=== PATIENT | female | born 1980 | race Caucasian/White ===

== ENCOUNTER 2017-03-07 04:51 | Inpatient (IN) | payer OTHER ==
[2017-03-07] MEDS ORDERED: Lactated Ringer's 1,000 ML IV SCH (05:06)
[2017-03-07 05:07] VITALS: BMI 43.2
[2017-03-07] MEDS ORDERED: cefOXitin Sodium 1 GM in Sodium Chloride 0.9% 100 ML IVPB ONE (05:25)
[2017-03-07] MEDS: Lactated Ringer's 1,000 ML IV SCH ×2 (05:50→06:49)
[2017-03-07 06:23] LABS: BASO % 0.2 % (0.0-2.0); EOS # 0.3 K/uL (0.0-0.7); EOS % 2.9 % (0.0-4.0); HEMATOCRIT 37.9 % (34.0-47.0); LYMPH # 1.3 K/uL (1.0-4.3); LYMPH % 12.3 % (20.0-40.0); MEAN CELL VOLUME 86.8 fl (81.0-99.0); MEAN CORPUSCULAR HEMOGLOBIN 28.4 pg (27.0-31.0); MEAN CORPUSCULAR HGB CONC 32.8 g/dL (33.0-37.0); MEAN PLATELET VOLUME 8.6 fl (7.2-11.7); MONO % 9.4 % (0.0-10.0); NEUT # 7.8 K/uL (1.8-7.0); NEUT % 75.2 % (50.0-75.0); NRBC % 0.1 % (0.0-0.0); RED CELL DISTRIBUTION WIDTH 14.7 % (11.5-14.5); WHITE BLOOD COUNT 10.4 K/uL (4.8-10.8)
[2017-03-07 06:32] LABS: ALB/GLOB RATIO 1.1 (1.0-2.1); ALKALINE PHOSPHATASE 113 U/L (38-126); ALT/SGPT 36 U/L (9-52); AST/SGOT 27 U/L (14-36); BILIRUBIN,TOTAL 0.2 mg/dl (0.2-1.3); BLOOD UREA NITROGEN 12 mg/dl (7-17); CALCIUM 8.9 mg/dL (8.4-10.2); CARBON DIOXIDE 22 mmol/L (22-30); CHLORIDE 105 mmol/L (98-107); GFR AFRICAN-AMERICAN > 60; GLUCOSE,RANDOM 88 mg/dL (65-105); SODIUM 136 mmol/l (132-148); URIC ACID 4.3 mg/Dl (2.2-7.5)
[2017-03-07 06:56] LABS: PARTIAL THROMBOPLASTIN TIME 30.7 Seconds (25.6-37.1)
--- NOTE | 2017-03-07 07:21 | OBADHP ---
Datetime: 03/07/2017 07:13 IP Chief Complaint Other: macrosomia by sono IP Adm Impression Other: early labor maternal request for abdominal delivery Admit Comment, IP Provider: mild elevated bp and macrosomia by sonos and now in early labor and mate rnal request for abdominal delivery Informed consent obtained Extremities - PN: Abnormal Abdomen - PN: Abnormal Breast - PN: Normal Lungs - PN: Normal Heart - PN: Normal Thyroid - PN: Normal Neurologic - PN: Normal HEENT - PN: Normal General - PN: Normal Presentation-Admit: cephalic FHR - Baseline A Provider: 150's Membranes, Provider: Intact Comments, ACOG Physical Exam: Abd gravid at 44 cm above sp, FCA + Ext mild edema but DTR 2+ sym Gestation - Est Wks by US: 39+ IP Hx Assessment: The History has been Reviewed and is Current IP Chief Complaint: Uterine contractions; Maternal discomfort; Other NICHD Variability Prov Fetus A: Moderate 6-25bpm NICHD Accel Fetus A IP Provider: 10X10 NICHD Decel Fetus A IP Provider: None Dilatation, Provider: Ft to 1cm Effacement, Provider: soft Genitourinary Exam: Normal DTRs - PN: Normal EGA AdmitDate IP: 39.3 IP Adm Impression: Term, intrauterine IP Admit Plan: Admit to unit; Initiate labor protocol
[2017-03-07 07:27] VITALS: RESP 18; TEMP 98.3; O2SAT 100
--- NOTE | 2017-03-07 09:19 | OBDS ---
DELIVERY PERSONNEL Delivery Doctor: Phi Schwartz MD Business Architect: Gabriela Delgadillo RN Anesthesiologist: Phi Ogden MD MATERNAL INFORMATION Delivery Anesthesia: Spinal Medications in Delivery: Pitocin 30 units Estimated Blood Loss (ml): 800 Placenta Cultured: No Maternal Complications: Other Other Maternal Complications: suspected macrosomia by sono/elevated BP Provider Comments: see dictated surgeons note LABOR SUMMARY EDC: 03/11/2017 00:00 No. Babies in Womb: 1 Attempted: No Labor Anesthesia: Spinal LABOR INFORMATION Reason for Induction: Not Applicable Reason for Induction Other: n/a Oxytocin: N/A Group B Beta Strep: Negative Steroids Given: None Reason Steroids Not Administered: Not Applicable MEMBRANES Membranes Rupture Method: Artificial Rupture of Membranes: 03/07/2017 08:22 Length of Rupture (hrs): 0.03 Amniotic Fluid Color: Clear Amniotic Fluid Amount: Moderate Amniotic Fluid Odor: Normal STAGES OF LABOR Stage 3 hrs: 0 Stage 3 min: 0 VAGINAL DELIVERY Episiotomy: None Laceration Extension: N/A Laceration Type: None Laceration Repair: Not Applicable Sponge Count Correct: Yes Sharps Count Correct: Yes Count Comment: count correct x3 CSECTION DELIVERY Primary Indication: Other Other Primary Indication: primary elective macrosomia CSection Urgency: Elective CSection Incidence: Primary Labor: No Labor Elective: Elective CSection Incision: Lower Uterine Transverse Uterine Closure: Double-layer closure BABY A INFORMATION Infant Delivery Date/Time: 03/07/2017 08:24 Method of Delivery: Born in Route : No : N/A Forceps: N/A Vacuum Extraction: Successful Shoulder Dystocia : No SHOULDER DYSTOCIA BABY A Delivery Date/Time: 03/07/2017 08:24 PRESENTATION/POSITION BABY A Presentation: Cephalic Cephalic Presentation: Vertex Breech Presentation: N/A PLACENTA INFORMATION BABY A Placenta Delivery Time : 03/07/2017 08:24 Placenta Method of Delivery: Manual Removal Placenta Status: Delivered SCORES BABY A Heart Rate 1 min: >100 bpm Resp Effort 1 min: Good Cry Reflex Irritability 1 min: Cough or Sneeze or Pulls Away Muscle Tone 1 min: Active Motion Color 1 min: Body Scanlon, Extremities Blue Resuscitation Effort 1 min: Tactile Stimulation SCORE 1 MIN: 9 Heart Rate 5 min: >100 bpm Resp Effort 5 min: Good Cry Reflex Irritability 5 min: Cough or Sneeze or Pulls Away Muscle Tone 5 min: Active Motion Color 5 min: Body Scanlon, Extremities Blue Resuscitation Effort 5 min: Tactile Stimulation SCORE 5 MIN: 9 INFORMATION BABY A Gestational Age at Delivery: 39.3 Gestational Status: Term Infant Outcome : Liveborn Infant Condition : Stable Infant Sex: Female IDENTIFICATION/MEDS BABY A ID Band Number: [id number] ID Band Location: Left Leg; Left Arm WEIGHT/LENGTH BABY A Birthweight (gms): 3580 Weight (lb): 7 Infant Weight (oz): 14 CORD INFORMATION BABY A No. Cord Vessels: 3 Nuchal Cord : Around Neck x2, Loose Cord Blood Taken: Yes Suction: None ASSESSMENT BABY A Complications: None Physical Findings at Delivery: Within Normal Limits Infant Respirations: Appears Normal Grain Elevator Agent/ALS Called : No Infant Care By: Edel Coronado RN Transferred To: [facility]
[2017-03-07] MEDS ORDERED: Oxycodone/Acetaminophen 5/325 mg Tab PO PRN ×2 (09:22→12:50)
[2017-03-07] MEDS ORDERED: cefOXitin Sodium 1 GM in Sodium Chloride 0.9% 100 ML IVPB SCH (09:30)
[2017-03-07] MEDS ORDERED: Oxytocin 30 units/LR 500ML 30 U/500 ML BAG IV SCH (09:30)
[2017-03-07 09:57] LABS: RBC URINE 2 /hpf (0-3); URINE BACTERIA RARE (<OCC); URINE BILIRUBIN NEGATIVE (NEGATIVE); URINE BLOOD NEGATIVE (NEGATIVE); URINE COLOR YELLOW (YELLOW); URINE GLUCOSE (UA) NEG (Normal); URINE KETONE NEGATIVE (NEGATIVE); URINE LEUKOCYTE ESTERASE MOD Leu/uL (Negative); URINE PROTEIN NEGATIVE (NEGATIVE); URINE URIC ACID CRYSTALS OCC /hpf (<OCC); URINE UROBILINOGEN 0.2-1.0 mg/dL (0.2-1.0); WBC URINE 2 /hpf (0-5)
[2017-03-07] MEDS ORDERED: DiphenhydrAMINE 50 mg/ml Inj IVP PRN (13:49)
[2017-03-07] MEDS: cefOXitin Sodium 1 GM in Sodium Chloride 0.9% 100 ML IVPB SCH (17:35)
[2017-03-07] MEDS ORDERED: Magnesium Sulfate 4 gm/100 ml 4 GM/100 ML BAG IVPB ONE (20:01)
[2017-03-07] MEDS ORDERED: Magnesium Sul 40GM/1L SW 40 GM/1,000 ML ML IV ONE (20:04)
--- NOTE | 2017-03-07 21:27 | OBPPN ---
Datetime: 03/07/2017 21:17 PP Pain Prov: Within normal limits PP Pain Prov comment: episode of chills and headache PP Nausea Prov: Denies PP Flatus Prov: No PP Nausea Prov comment: Denies sob chest pains PP Flatus Prov comment: denies blurry vision PP Breasts Prov: Normal PP Lungs Prov: Normal PP Abdomen/Uterus Prov: Abnormal PP Lochia Prov: Normal PP Vulva/Perineum Prov: Normal PP CVA Tenderness Prov: Normal PP Extremities Prov: Abnormal PP C/S Incision Prov: Normal PP Progress Prov: Not Applicable PP Comments Phys Exam Prov: Lungs clear no wheezing no rales, abd soft not distended dressing intact no sign of active bleeding Lockia mod. Ext bilateral edema but reflexes slightly brisk but no hyper refexia, no calf tenderness Padgett in place clear yellowish fluids PP Impression Other Prov: increase BP episodes and headaches PP Plan Other Prov: transfer to L/D for MgSO4 PP Progress Note Prov: possible pre-eclampsia will start on Magnesium profilaxis repeat liver enzyme s and CBC Pt and partner informed of situation and understands and agreed Vital Signs Provider PP: Reviewed
--- NOTE | 2017-03-07 22:54 | OP ---
PROCEDURE DATE: 03/07/2017 PREOPERATIVE DIAGNOSES: 1. at term. 2. Early labor and maternal discomfort. 3. Microsomia by previous sonograms. 4. Maternal request for elective . 5. Elevated blood pressures. POSTOPERATIVE DIAGNOSES: 1. at term. 2. Early labor, maternal discomfort. 3. Maternal request for section. 4. Elevated blood pressures. 5. Nuchal cord x 2, tight. PROCEDURE PERFORMED: Primary low transverse segment section. SURGEON: Dr. Schwartz. MECHANICAL ADJUSTER: Dr. Hamlin who was there for the entire duration of the case. Supervisor Last Model Department needed in pos itioning the patient, opening up the abdomen, delivery of the baby and closure of the abdomen. ANESTHESIA USED: Spinal by Dr. Ogden. ESTIMATED BLOOD LOSS: 800 mL. DRAINS USED: None. REPLACEMENTS USED: None. FINDINGS: 1. Delivered a living baby girl. Baby appears term. Baby cries spontaneously. Pediatrics in atten dance. score of 9 and 9. Nuchal cord x 2, tight. 2. Amniotic fluid clear. 3. Placenta complete and intact. 4. Both tubes and ovaries appear grossly within normal limits to inspection bilaterally. DESCRIPTION OF PROCEDURE: The patient was taken to the operating room and placed on the operating ta ble in a supine position. Following induction of spinal anesthesia, the patient was then replaced in a supine position. A Padgett catheter was inserted into the bladder. Venodyne boots were applied to both legs. Clear fluid noted to be present in the Padgett bag at this time. At this time, we then pro ceeded to drape and prep the abdomen in the usual sterile manner. Anesthesia tested and found to be well secure. A Pfannenstiel incision was then made using sharp dissection 2 fingerbreadths above the symphysis pubis. The incision was then extended down to subcutaneous tissue also using sharp dissec tion. At this time, we then proceeded to obtain hemostasis by means of electrocoagulation. The fasc ia was then identified, was then entered at the midline. Incision in the fascia was then extended la terally in each direction using sharp dissection. At this time, the rectus muscle was then slit at t he midline exposing the peritoneum. Peritoneal layer was then picked up using 2 Brigette clamps, retrac jono superiorly and then entered using sharp dissection. Following this, we then proceeded to extend the incision in the peritoneum superiorly and inferiorly under direct visualization. The bladder was identified, was then retracted inferiorly using the Rina retractor. At this time, we then procee ded to identify the low transverse segment of the uterus. The low transverse segment of the uterus w as then entered at the visceral peritoneum, and using blunt dissection, a bladder flap was then creat ed and retracted inferiorly using the same [place] retractor. An incision was then made in the low t ransverse segment of the uterus. Upon entering the uterine cavity, clear fluid noted to be present. The incision in the uterine area was then extended laterally in each direction using bandage scissor s. Using a manual scooping procedure, a living baby girl was then delivered. The baby appears term, slightly large for gestational age. Baby cries spontaneously. There were 2 loops of cord around th e neck, which appears to be a slightly tight, undone prior to full delivery. At this time, the umbil icus was then doubly clamped, cut and the baby handed to the pediatric personnel who was standing by. Samples of cord blood were then obtained and the placenta was then delivered complete and intact. The uterus was then exteriorized to provide better visualization. The uterine cavity was then thorou ghly cleaned using moist lap pad. The uterus was massaged and contracted well. Uterine incision was then secured using multiple T clamps and the uterine incision was then approximated using 0 Vicryl s uture in a continuous interlocking manner. A second layer was also applied using 0 Vicryl suture in a continuous manner. At this time, hemostasis checked and found to be well secure. The bladder flap was then approximated using a 2-0 Vicryl in a continuous manner. Hemostasis checked and found to be well secure. Both tubes and ovaries appear grossly within normal limits to inspection bilaterally. Free amniotic fluid and blood were then evacuated from the pelvic cavity. The uterus was then allow ed to retract back into its original position. All operative areas checked, hemostatically secure an d the peritoneum was then approximated using 0 Vicryl suture in a continuous manner. Rectus muscle w as also approximated at the midline using several interrupted 0 Vicryl suture. The fascia was then i dentified, was then approximated using 1 Vicryl suture in a continuous manner. Fascia was then check ed and found to be free of defects. Subcutaneous tissue was then irrigated using saline solution and approximated using several interrupted 2-0 plain sutures. The skin was then approximated using a 3- 0 Prolene in a subcuticular fashion. Steri-Strips were then applied. The patient tolerated the proc edure well. There were no complications. She was transferred to the recovery room in satisfactory c ondition. Clear fluid noted to be present in the Padgett bag at this time. Sponge, instrument, and ne edle count were correct x 3. Kareem Schwartz MD cc: 71 TT: 03/07/2017 22:53:45 mn
[2017-03-08] MEDS: cefOXitin Sodium 1 GM in Sodium Chloride 0.9% 100 ML IVPB SCH ×2 (02:20→10:30)
[2017-03-08 06:54] LABS: HEMATOCRIT 34.9 % (34.0-47.0); MEAN CELL VOLUME 86.8 fl (81.0-99.0); MEAN CORPUSCULAR HEMOGLOBIN 28.2 pg (27.0-31.0); MEAN CORPUSCULAR HGB CONC 32.5 g/dL (33.0-37.0); RED CELL DISTRIBUTION WIDTH 15.1 % (11.5-14.5); WHITE BLOOD COUNT 15.3 K/uL (4.8-10.8)
[2017-03-08] MEDS ORDERED: Magnesium Sul 40GM/1L SW 40 GM/1,000 ML ML IV ONE (08:30)
[2017-03-08 09:09] LABS: BILIRUBIN,TOTAL 0.2 mg/dl (0.2-1.3); TOTAL PROTEIN 5.9 G/DL (6.3-8.2)
--- NOTE | 2017-03-08 09:09 | OBPPN ---
Datetime: 03/08/2017 08:58 PP Pain Prov: Within normal limits PP Pain Prov comment: no SOB, chest pains or leg pains Denies C/F PP Nausea Prov: Denies PP Nausea Prov comment: no n/v PP Breasts Prov: Normal PP Lungs Prov: Normal PP Abdomen/Uterus Prov: Abnormal PP Lochia Prov: Normal PP Vulva/Perineum Prov: Normal PP CVA Tenderness Prov: Normal PP Extremities Prov: Abnormal PP C/S Incision Prov: Normal PP Progress Prov: Not Applicable PP Comments Phys Exam Prov: awake alert NAD, lungs clear no wheezing or rales, Abd soft not distende d Bowel sounds present, dressing intact no active bleeding removed and inclision clean and dry no act malia bleed or suppt no sign of infection. Prolene in place. Ext still with mild edema bilaterally bu t no calf tenderness and Venodyne in place DTR 2+ sym. Padgett in place draining yellow fluid with goo d output PP Plan Prov: Continue present management PP Impression Other Prov: mild pre-eclampsia on mag. PP Progress Note Prov: CBC reviewed, pending liver enzymes, MgSO4 decreased, start diet and OOB with help. IP PP Procedures: None
[2017-03-08 09:47] LABS: ALKALINE PHOSPHATASE 92 U/L (38-126); ALT/SGPT 42 U/L (9-52); AST/SGOT 46 U/L (14-36); BILIRUBIN,TOTAL 0.3 mg/dl (0.2-1.3); BLOOD UREA NITROGEN 7 mg/dl (7-17); CALCIUM 7.8 mg/dL (8.4-10.2); CARBON DIOXIDE 25 mmol/L (22-30); CHLORIDE 102 mmol/L (98-107); GFR AFRICAN-AMERICAN > 60; GLUCOSE,RANDOM 132 mg/dL (65-105); POTASSIUM 3.9 MMOL/L (3.6-5.0); SODIUM 132 mmol/l (132-148)
--- NOTE | 2017-03-09 08:46 | OBPPN ---
Datetime: 03/09/2017 08:39 PP Pain Prov: Within normal limits PP Pain Prov comment: No SOB, chest pains or leg pains PP Nausea Prov: Denies PP Flatus Prov: Yes PP BM Prov: No PP Breasts Prov: Normal PP Lungs Prov: Normal PP Abdomen/Uterus Prov: Abnormal PP Lochia Prov: Normal PP Vulva/Perineum Prov: Normal PP CVA Tenderness Prov: Normal PP Extremities Prov: Abnormal PP C/S Incision Prov: Normal PP Progress Prov: Normal PP Comments Phys Exam Prov: awake alert w/o x3 ambulating well without any difficulty, Abd soft not distended depressible fundus firm below the umb. Incision clean and dry no active bleeding sutures i n place, ext no calf tenderness but bilateral edema still present. DTR 2+ sym PP Impression Prov: Normal progression PP Plan Prov: Continue present management PP Impression Other Prov: pre-eclampsia improved PP Progress Note Prov: OOB and ambulation, dulcolax suppt this am Continue po care and PP care IP PP Procedures: None
--- NOTE | 2017-03-10 10:18 | OBPPN ---
Datetime: 03/10/2017 10:11 PP Pain Prov: Within normal limits PP Pain Prov comment: No SOB, chest pains or leg pains PP Nausea Prov: Denies PP Flatus Prov: Yes PP BM Prov: Yes PP Nausea Prov comment: No headaches or visual dist. PP Breasts Prov: Normal PP Heart Prov: Normal PP Lungs Prov: Normal PP Abdomen/Uterus Prov: Abnormal PP Lochia Prov: Normal PP Vulva/Perineum Prov: Normal PP CVA Tenderness Prov: Normal PP Extremities Prov: Abnormal PP C/S Incision Prov: Normal PP Progress Prov: Normal PP Comments Phys Exam Prov: Lungs clear, Abd soft ND, fundus firm at umb. Incision clean and dry n o suppt or discharge jExt bilateral edema DTR 2+ sym PP Plan Prov: Continue present management PP Impression Other Prov: labile BP PP Progress Note Prov: BP creaping up will get a med consult Dr Sue Willingham consulted and will see p t IP PP Procedures: None Vital Signs Provider PP: Reviewed
--- NOTE | 2017-03-10 11:29 | CP.PCM.CON ---
History of Present Illness - History of Present Illness History of Present Illness: THE PATIENT IS A 36 YEAR OLD FEMALE WHO DENIES ANY SIGNIFICANT PAST MEDICAL PROBLEMS AND WAS NOT ON ANY PRESCRIPTION MEDICATIONS FOR ANY MEDICAL PROBLEM. SHE WAS AT 39 WEEKS GESTATION AND HAD A ON 03/07/17. HE BLOOD PRESSURE WAS NORMAL ON VISITS AND ON ADMISSION, BUT IT INCREASED AFTER THE ANS DECREASED WITH MGSO4 BUT IT WAS HIGH AGAIN THIS MORNING AFTER THE MGSO4 WAS STOPPED. CARDIOLOGY WAS THEN CALLED FOR THE HYPERTENSION. SHE DENIES CHEST PAIN, PALPITATIONS OR SOB Past Patient History - Past Social History Smoking Status: Never Smoked Meds Allergies/Adverse Reactions: Allergies Allergy/AdvReac Type Severity Reaction Status Date / Time shellfish derived Allergy ANAPHYLAXIS Verified 03/07/17 05:05 - Medications Medications: Current Medications Diphenhydramine HCl (Benadryl) 50 mg IVP Q6 PRN PRN Reason: Itching / Pruritus Docusate Sodium (Colace) 100 mg PO BID [facility] Last Admin: 03/10/17 08:32 Dose: 100 mg Ibuprofen (Motrin Tab) 600 mg PO Q4H PRN PRN Reason: Pain, Mild (1-3) Last Admin: 03/09/17 19:10 Dose: 600 mg Ketorolac Tromethamine (Toradol) 30 mg IVP Q6 PRN PRN Reason: For PCEA Breakthrough Pain Last Admin: 03/08/17 14:09 Dose: 30 mg Metoclopramide HCl (Reglan) 10 mg IVP Q6H PRN PRN Reason: Nausea/Vomiting Physical Exam - Respiratory Exam Respiratory Exam: Clear to Auscultation Bilateral - Cardiovascular Exam Cardiovascular Exam: REGULAR RHYTHM, +S1, +S2 - Extremities Exam Additional comments: MILD PRE-TIBIAL EDEMA - Additional Findings Additional findings: BP THIS AM WAS 177/97 AND 152/922 Results - Vital Signs Recent Vital Signs: Last Vital Signs Temp 98.3 F 03/07/17 07:23 Pulse 87 03/07/17 07:23 Resp 18 03/07/17 07:23 BP 159/69 H 03/07/17 07:23 Pulse Ox 100 03/07/17 07:23 - Labs Result Diagrams: 03/08/17 06:41 03/08/17 09:17 Assessment & Plan - Assessment and Plan (Free Text) Assessment: INDUCED HYPERTENSION Plan: WILL BEGIN AMLODIPINE 5 MGS DAILY AND OBSERVE BLOOD PRESSURE
--- NOTE | 2017-03-10 17:42 | CARD ---
APPROVED REPORT EKG Measurement Heart [id number] <Conclusion> Normal sinus rhythm Possible Left atrial enlargement Borderline ECG
[2017-03-11 09:13] VITALS: BP 144/83; PULSE 83
--- NOTE | 2017-03-11 11:08 | CP.PCM.PN ---
Subjective - Date & Time of Evaluation Date of Evaluation: 03/11/17 Time of Evaluation: 10:15 - Subjective Subjective: NO COMPLAINTS FEELS WELL Objective - Vital Signs/Intake and Output Vital Signs (last 24 hours): Temp Pulse Resp BP Pulse Ox 98.3 F 83 18 144/83 100 03/07/17 07:23 03/11/17 09:13 03/07/17 07:23 03/11/17 09:13 03/07/17 07:23 - Medications Medications: Current Medications Amlodipine Besylate (Norvasc) 5 mg PO DAILY [facility] Last Admin: 03/11/17 09:13 Dose: 5 mg Diphenhydramine HCl (Benadryl) 50 mg IVP Q6 PRN PRN Reason: Itching / Pruritus Docusate Sodium (Colace) 100 mg PO BID [facility] Last Admin: 03/11/17 09:12 Dose: 100 mg Ibuprofen (Motrin Tab) 600 mg PO Q4H PRN PRN Reason: Pain, Mild (1-3) Last Admin: 03/09/17 19:10 Dose: 600 mg Ketorolac Tromethamine (Toradol) 30 mg IVP Q6 PRN PRN Reason: For PCEA Breakthrough Pain Last Admin: 03/08/17 14:09 Dose: 30 mg Metoclopramide HCl (Reglan) 10 mg IVP Q6H PRN PRN Reason: Nausea/Vomiting - Labs Labs: 03/08/17 06:41 03/08/17 09:17 PT 10.1 Seconds (9.8-13.1) 03/07/17 06:00 INR 0.9 (0.9-1.2) 03/07/17 06:00 APTT 30.7 Seconds (25.6-37.1) 03/07/17 06:00 - Respiratory Exam Respiratory Exam: Clear to Ausculation Bilateral - Cardiovascular Exam Cardiovascular Exam: REGULAR RHYTHM, +S1, +S2 - Extremities Exam Additional comments: MILD LE EDEMA - Additional Findings Additional findings: BP 144/83 EKG NSR Assessment and Plan - Assessment and Plan (Free Text) Assessment: INDUCED HYPERTENSION-CONTROLLED Plan: OK TO DISCHARGE PATIENT TODAY AMLODIPINE 5 MGS PO DAILY OV WITH DR RIVAS AND DR RIVAS IN ABOUT 1 WEEK
== END 2017-03-11 14:10 | disposition home or self-care (01) | DRG 766 ==
LOC: H.EROB2 04:51 → H.L&D 05:16 → H.OB/GYN 12:30 → H.L&D 19:50 → H.OB/GYN 03-08 20:25
PROVIDERS: ADMIT Specialist; ATTEND Specialist
PROC: 10D00Z1 Extraction of Products of Conception, Low, Open Approach (ICD-10-PCS; principal; 2017-03-07)
PROC: 4A1HXCZ Monitoring of Products of Conception, Cardiac Rate, External Approach (ICD-10-PCS; 2017-03-07)
DX: O36.63X0 Maternal care for excessive fetal growth, third trimester, not applicable or unspecified (principal); J45.909 Unspecified asthma, uncomplicated; Z37.0 Single live birth; O69.1XX0 Labor and delivery complicated by cord around neck, with compression, not applicable or unspecified; Z3A.39 39 weeks gestation of pregnancy; O99.52 Diseases of the respiratory system complicating childbirth; O13.4 Gestational [pregnancy-induced] hypertension without significant proteinuria, complicating childbirth